=== PATIENT | male | born 1965 | race Caucasian/White ===

== ENCOUNTER 2021-04-19 17:51 | Emergency (ER) | payer OTHER ==
[2021-04-19] MEDS ORDERED: NS 1,000 ML IV ONE ×2 (18:15→23:35)
[2021-04-19 18:34] LABS: BASO # 0.1 10^3/uL (0.0-0.2); BASO % 0.9 % (0.0-1.0); EOS # 0.4 10^3/uL (0.0-0.5); HEMATOCRIT 45.3 % (42.0-52.0); LYMPH # 2.6 10^3/uL (1.5-5.0); LYMPH % 34.4 % (24.0-44.0); MEAN CORPUSCULAR HEMOGLOBIN 30.2 pg (27.0-33.0); MEAN CORPUSCULAR HGB CONC 33.1 g/dl (32.0-36.5); MEAN CORPUSCULAR VOLUME 91.3 fl (80.0-96.0); MONO # 0.8 10^3/uL (0.0-0.8); NEUTROPHILS # 3.7 10^3/uL (1.5-8.5); NEUTROPHILS % 48.4 % (36.0-66.0); PLATELET COUNT, AUTOMATED 189 10^3/uL (150-450); RED BLOOD COUNT 4.96 10^6/uL (4.30-6.10); WHITE BLOOD COUNT 7.7 10^3/uL (4.0-10.0)
--- NOTE | 2021-04-19 18:58 | REPVR ---
PROCEDURE INFORMATION: Exam: CT Head Without Contrast Exam date and time: 04/19/2021 6:13 PM Age: 56 years old Clinical indication: Altered mental status/memory loss; Additional info: Drug overdose TECHNIQUE: Imaging protocol: Computed tomography of the head without contrast. Radiation optimization: All CT scans at this facility use at least one of these dose optimization techniques: automated exposure control; mA and/or kV adjustment per patient size (includes targeted exams where dose is matched to clinical indication); or iterative reconstruction. COMPARISON: No relevant prior studies available. FINDINGS: Brain: Normal. No hemorrhage. Unremarkable white matter. No mass effect. Cerebral ventricles: No ventriculomegaly. Paranasal sinuses: Visualized sinuses are unremarkable. No fluid levels. Mastoid air cells: Visualized mastoid air cells are well aerated. Bones/joints: Unremarkable. No acute fracture. Soft tissues: Unremarkable. IMPRESSION: No acute intracranial abnormality. Electronically signed by: Doug Cespedes On 04/19/2021 18:57:42 PM
[2021-04-19] MEDS ORDERED: LORazepam 2 MG/ML VIAL IV STA (19:00)
[2021-04-19] MEDS ORDERED: LORazepam 2 MG/ML VIAL As Ordered ONE (19:04)
--- NOTE | 2021-04-19 19:04 | REPVR ---
PROCEDURE INFORMATION: Exam: CT Cervical Spine Without Contrast Exam date and time: 04/19/2021 6:13 PM Age: 56 years old Clinical indication: Other: AMS; Additional info: Drug overdose TECHNIQUE: Imaging protocol: Computed tomography images of the cervical spine without contrast. Radiation optimization: All CT scans at this facility use at least one of these dose optimization techniques: automated exposure control; mA and/or kV adjustment per patient size (includes targeted exams where dose is matched to clinical indication); or iterative reconstruction. COMPARISON: No relevant prior studies available. FINDINGS: Bones/joints: No acute fracture. Normal alignment. Discs/Spinal canal/Neural foramina: Disc space narrowing at C5-C6 and C6-C7 with intervertebral osteophytes. Moderate foraminal narrowing on the right at C4, moderate bilateral foraminal narrowing at C5 and moderate foraminal narrowing on the left at C6 secondary to osteophytic encroachment. Disc osteophyte complexes at C5-C6 and C6-C7 effaces ventral subarachnoid space without significant cord impingement. Lungs: Lung apices are normal. Soft tissues: Unremarkable. IMPRESSION: Degenerative changes. No acute findings. Electronically signed by: Doug Cespedes On 04/19/2021 19:03:50 PM
[2021-04-19 19:18] LABS: ACETAMINOPHEN LEVEL < 2.0 UG/ML (10.0-30.0); ALBUMIN 3.9 GM/DL (3.2-5.2); ALT/SGPT 31 U/L (12-78); BILIRUBIN,DIRECT 0.2 MG/DL (0.0-0.2); BILIRUBIN,TOTAL 0.4 MG/DL (0.2-1.0); BLOOD UREA NITROGEN 14 MG/DL (7-18); CARBON DIOXIDE LEVEL 27 MEQ/L (21-32); CHLORIDE LEVEL 104 MEQ/L (98-107); CPK CREATINE PHOSPHOKINASE 140 U/L (39-308); GLOMERULAR FILTRATION RATE > 60.0 (>56); GLUCOSE, FASTING 105 MG/DL (70-100); POTASSIUM SERUM 4.4 MEQ/L (3.5-5.1); SALICYLATE LEVEL 4.5 MG/DL (5.0-30.0); SODIUM LEVEL 141 MEQ/L (136-145); TOTAL PROTEIN 7.4 GM/DL (6.4-8.2)
[2021-04-19 19:57] LABS: AMPHETAMINES LEVEL URINE NEGATIVE (NEGATIVE); BARBITURATES URINE NEGATIVE (NEGATIVE); BENZODIAZEPINES URINE NEGATIVE (NEGATIVE); CANNABINOIDS URINE NEGATIVE (NEGATIVE); COCAINE METABOLITE URINE NEGATIVE (NEGATIVE); METHADONE URINE NEGATIVE (NEGATIVE); OPIATES URINE NEGATIVE (NEGATIVE); PHENCYCLIDINE URINE NEGATIVE (NEGATIVE)
--- NOTE | 2021-04-19 20:33 | REPVR ---
PROCEDURE INFORMATION: Exam: XR Chest Exam date and time: 04/19/2021 8:24 PM Age: 56 years old Clinical indication: Other: Od; Additional info: Drug overdose TECHNIQUE: Imaging protocol: XR of the chest. Views: 1 view. COMPARISON: CT Spine,cervical w/o contrast 04/19/2021 6:23 PM FINDINGS: Lungs: Unremarkable. No consolidation. Pleural spaces: Unremarkable. No pleural effusion. No pneumothorax. Heart/Mediastinum: Unremarkable. No cardiomegaly. Bones/joints: Unremarkable. IMPRESSION: No acute findings. Electronically signed by: Doug Cespedes On 04/19/2021 20:33:31 PM
[2021-04-19 23:03] LABS: ABG O2 SATURATION 95.3 % (95.0-99.0); ABG PARTIAL PRESSURE CO2 56.1 mmHg (35.0-45.0); ABG PARTIAL PRESSURE O2 91.7 mmHg (75.0-100.0); ABG TOTAL CO2 26.7 MEQ/L (22.0-29.0); ABG pH (ARTERIAL) 7.266 UNITS (7.350-7.450)
[2021-04-20] MEDS ORDERED: LORazepam 2 MG TAB PO PRN
[2021-04-20 01:57] LABS: ABG BASE EXCESS -1.1 (-2.0-2.0); ABG HCO3 25.4 MEQ/L (22.0-26.0); ABG O2 SATURATION 92.6 % (95.0-99.0); ABG PARTIAL PRESSURE O2 74.9 mmHg (75.0-100.0); ABG STANDARD HCO3 23.4 MEQ/L (22.0-26.0); ABG TOTAL CO2 26.9 MEQ/L (22.0-29.0); ABG pH (ARTERIAL) 7.332 UNITS (7.350-7.450)
[2021-04-20] MEDS ORDERED: OXAZEPAM 15 MG CAP PO ONE (02:25)
[2021-04-20 02:57] VITALS: BP 144/76
--- NOTE | 2021-04-20 06:53 | ECGEPIP ---
[facility] - ED Test Date: 2021-04-19 Pat Name: MACI HERRERA Department: Room: - Gender: Male Dish Person: ALANA : 1965 Requested By: MICHAEL SANTANA Order Number: [id number] Reading MD: Javy Perry Measurements Intervals [place] Rate: 93 P: 108 NE: 164 QRS: 164 QRSD: 124 T: 111 QT: 382 QTc: 474 Interpretive Statements Suspect arm lead reversal, interpretation assumes no reversal Normal sinus rhythm Right axis deviation Nonspecific intraventricular conduction delay Nonspecific ST abnormality No prior ECG for comparison recommend repeat ecg Electronically Signed on 04-20-2021 6:53:04 EST by Javy Perry
[2021-04-20] MEDS ORDERED: MULTIVITAMINS/MINERALS THERAP 1 TAB PO SCH (09:00)
[2021-04-20] MEDS ORDERED: THIAMINE 100 MG TAB PO SCH (09:00)
[2021-04-20] MEDS ORDERED: FOLIC ACID 1 MG TAB PO SCH (09:00)
[2021-04-21] MEDS ORDERED: UNRESOLVED PATIENT OWN MED ORDER XX SCH (00:01)
== END 2021-04-20 03:45 | disposition home or self-care (01) ==
LOC: M ED 17:51
DX: Z04.1 Encounter for examination and observation following transport accident (principal); F10.129 Alcohol abuse with intoxication, unspecified; Y90.2 Blood alcohol level of 40-59 mg/100 ml
CPT/HCPCS: 36600; 70450; 71045; 72125; 80048; 80076; 80143; 80307; 82077; 82550; 82803; 84443; 85025; 93005; 93041; 94640; 96361; 96374; 99291; J2060